=== PATIENT | female | born 1950 | race Caucasian/White ===

== ENCOUNTER → 2019-01-04 | Outpatient (CLI) | payer MEDICARE, BC ==
--- NOTE | 2019-01-04 15:07 | Diagnostic Imaging Report ---
Frontal and lateral views of the chest. HISTORY: GENERAL MEDICAL EXAM, cough, shortness of breath COMPARISON: None available. DISCUSSION: Soft tissue attenuation partially limits sensitivity of the exam. Lungs: Marked elevation of the left hemidiaphragm. Low lung volumes, left greater than right, result in bibasilar vascular crowding, accentuation of the pulmonary interstitial markings, central pulmonary vasculature, and the cardiac silhouette. Allowing for these limitations, the findings are as follows: Patchy right infrahilar and right upper lung zone ill-defined opacities with possible central serpentine lucencies. Pleura: No pleural effusion or pneumothorax. Heart and mediastinum: The mediastinal structures are shifted to the right by the elevated left hemidiaphragm. Bones and soft tissues: Accentuation of the thoracic kyphosis with mild multilevel degenerative disc changes. A 3 mm lumbar retrolisthesis. IMPRESSION: 1. Ill-defined right infrahilar and upper lung opacities with possible central bronchiectasis. Recommend a follow-up CT of the chest without contrast for further evaluation. 2. Elevation of the left hemidiaphragm. After the CT of the chest, a fluoroscopic sniff test may be warranted to evaluate for diaphragmatic paralysis. Signed by: Dr. Amando Lopez D.O., M.M.M. on 01/04/2019 3:04 PM
== END ==
LOC: RAD 13:22
DX: Z00.00 Encounter for general adult medical examination without abnormal findings (principal); R05 Cough
CPT/HCPCS: 71046

== ENCOUNTER → 2019-01-08 | Outpatient (CLI) | payer MEDICARE, BC ==
--- NOTE | 2019-01-08 13:14 | Diagnostic Imaging Report ---
EXAM: CT Chest without contrast INDICATION: Abnormal chest x-ray. COMPARISON: Chest radiograph 01/04/2019. TECHNIQUE: Chest was scanned utilizing a multidetector helical scanner from the lung apex through the level of the adrenal glands without administration of IV contrast. Coronal and sagittal reformations were obtained. Routine protocol was performed. RADIATION DOSE: Total DLP: 428.8 mGy*cm Estimated effective dose: (DLP x 0.014 x size factor) mSv Dose modulation, iterative reconstruction, and/or weight based adjustment of the mA/kV was utilized to reduce the radiation dose to as low as reasonably achievable. COMPLICATIONS: None FINDINGS: LINES/ TUBES: None. LUNGS AND AIRWAYS: The central airways are patent. There is mild volume loss in the right greater than left lung. There is mild rightward mediastinal deviation. There are multifocal, predominantly peripheral reticular opacities, most pronounced in the bilateral upper, right middle, and right lower lobes. There are mild peripheral reticular opacities within the left lower lobe. There are areas of cylindrical bronchiectasis versus honeycombing, for example in the right upper lobe on series 3, image 28 and right lower lobe on image 53. There is associated architectural distortion. Mild patchy groundglass opacities, for example in the right upper lobe on image 25. Scattered nodular opacities, for example in the right upper lobe measuring 5 mm on image 33 and 7 mm in the dependent right upper lobe on image 38. PLEURA: The pleural spaces are clear. HEART AND MEDIASTINUM: The thyroid gland is normal. No mediastinal, hilar or axillary lymphadenopathy. Subcentimeter mediastinal lymph nodes, not meeting size criteria for enlargement. There are calcified right hilar lymph nodes. No cardiomegaly or pericardial effusion. Scattered coronary and aortic atherosclerotic calcifications. There is elevation of the left hemidiaphragm. UPPER ABDOMEN: Limited non-contrast views of the upper abdomen are unremarkable. BONES: No acute osseous abnormality. No suspicious lytic or blastic lesions. SOFT TISSUES: Bilateral breast implants. IMPRESSION: Findings of fibrotic interstitial lung disease, differential includes fibrotic NSIP versus UIP. Indeterminate nodular opacities, measuring up to 7 mm in the right upper lobe. Suggest follow-up interstitial lung disease protocol CT in 3 months. Elevation of left hemidiaphragm. Diaphragmatic sniff test may be considered for further evaluation. Signed by: Dr. Danny Suresh MD on 01/08/2019 1:11 PM
== END ==
LOC: CT 10:02
DX: R93.89 Abnormal findings on diagnostic imaging of other specified body structures (principal)
CPT/HCPCS: 71250

== ENCOUNTER → 2019-02-02 | Outpatient (CLI) | payer MEDICARE, BC ==
--- NOTE | 2019-02-02 12:01 | Diagnostic Imaging Report ---
Exam: Fluoroscopic "Sniff Test". History: Elevated hemidiaphragm on recent imaging. No history of trauma Comparison: CT scan of the chest dated 01/08/2019 Findings: Fluoroscopic evaluation of diaphragmatic excursion shows non movement on the left side. Sniff test reveals paradoxical motion. Fluoroscopy time: 1.0 minutes Total dose: 20.16 mGy Impression: Paradoxical motion of the left diaphragm. Signed by: Dr. Wally Luis DO on 02/02/2019 11:58 AM
== END ==
LOC: DX 08:20
PROVIDERS: ATTEND Internal Medicine Critical Care Medicine
DX: R09.02 Hypoxemia (principal); R06.00 Dyspnea, unspecified; J84.10 Pulmonary fibrosis, unspecified; K21.9 Gastro-esophageal reflux disease without esophagitis; Q79.1 Other congenital malformations of diaphragm; Z88.9 Allergy status to unspecified drugs, medicaments and biological substances
CPT/HCPCS: 36415; 82785; 83615; 85651; 86039; 86431

== ENCOUNTER → 2019-04-18 | Outpatient (CLI) | payer MEDICARE, BC ==
--- NOTE | 2019-04-18 11:49 | Diagnostic Imaging Report ---
ADDENDUM #1 TECHNIQUE: CT scan of the chest WITHOUT intravenous contrast, using standard protocol. Thin collimation scanning during the inspiratory and expiratory phases as well as in the prone position was performed. Sagittal and coronal multiplanar reformations were obtained. Signed by: Dayo Alvarez MD on 04/18/2019 3:04 PM ORIGINAL REPORT EXAM: CT Chest WITHOUT intravenous contrast 04/18/2019 9:16 AM INDICATION: Shortness of breath COMPARISON: Chest CT of 01/08/2019 TECHNIQUE: Chest was scanned utilizing a multidetector helical scanner from the lung apex through the level of the adrenal glands without administration of IV contrast. Coronal and sagittal reformations were obtained. Routine protocol was performed. IV CONTRAST: None RADIATION DOSE: Total DLP: 1438.11 mGy*cm. Dose modulation, iterative reconstruction, and/or weight based adjustment of the mA/kV was utilized to reduce the radiation dose to as low as reasonably achievable. COMPLICATIONS: None FINDINGS: LINES/ TUBES: None. LUNGS AND AIRWAYS: The central airways are patent. Again seen are multifocal predominantly peripheral reticular interstitial opacities with honeycombing, right greater than left. There is associated traction bronchiectasis and architectural distortion of lung parenchyma. On excretory phase imaging, there are geographic areas of lucent lung compatible with air trapping. The previous identified 7 mm right upper lobe nodule (series 3 image 44) is not significantly changed compared to the prior CT of 01/08/2019. No new or enlarging pulmonary nodules. Unchanged elevation of the left hemidiaphragm. PLEURA: No pleural effusion. No pneumothorax. HEART AND MEDIASTINUM: The thyroid gland appears unremarkable. No supraclavicular, mediastinal, hilar, axillary, subpectoral, or internal mammary lymphadenopathy. The heart is not enlarged. There are scattered atherosclerotic calcic dictations of the coronary arteries and thoracic aorta. UPPER ABDOMEN: Limited noncontrast images of the upper abdomen demonstrate no abnormality in the partially visualized liver, gallbladder, kidneys, adrenal glands, spleen, or pancreas. BONES: Mild degenerative changes of the visualized spine. No suspicious lytic or blastic lesions. SOFT TISSUES: Incidental note of bilateral breast implants. IMPRESSION: 1. Fibrotic interstitial lung disease, likely in a UIP pattern, appears similar compared to 01/08/2019. 2. Unchanged 7 mm right upper lobe nodule. Recommend follow-up chest CT in one year. 3. 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 RECOMMENDATIONS: Follow-up chest CT in 1 year. Signed by: Dayo Alvarez MD on 04/18/2019 11:45 AM
== END ==
LOC: CT 09:06
PROVIDERS: ATTEND Internal Medicine Critical Care Medicine
DX: Q79.1 Other congenital malformations of diaphragm (principal); R09.02 Hypoxemia; R06.00 Dyspnea, unspecified; J84.10 Pulmonary fibrosis, unspecified; K21.9 Gastro-esophageal reflux disease without esophagitis; Z88.9 Allergy status to unspecified drugs, medicaments and biological substances
CPT/HCPCS: 71250

== ENCOUNTER → 2021-05-07 | Day surgery (SDC) | payer MEDICARE, BC ==
[2021-05-05 13:45] LABS: BASOPHILS % 0.4 % (0.0-1.0); EOSINOPHILS # (AUTO) 0.3 (0.0-0.4); EOSINOPHILS % 3.8 % (0.0-6.0); LYMPHOCYTES # (AUTO) 1.9 (1.0-3.2); LYMPHOCYTES % 26.4 % (18.0-39.1); MEAN CORPUSCULAR HEMOGLOBIN 29.7 pg (28-32); MEAN CORPUSCULAR HGB CONC 32.4 g/dL (31-35); MEAN CORPUSCULAR VOLUME 91.6 fL (81-99); MONOCYTES # (AUTO) 0.7 (0.2-0.8); MONOCYTES % 9.3 % (4.4-11.3); NEUTROPHILS # (AUTO) 4.3 (2.1-6.9); NEUTROPHILS % 59.7 % (38.7-80.0); PLATELET COUNT 207 x10e3/uL (140-360); RED BLOOD COUNT 4.04 x10e6/uL (3.6-5.1); RED CELL DISTRIBUTION WIDTH 11.9 % (11.7-14.4)
[~2021-05-07] MED LIST: AMLODIPINE BESYL5 MG PO; FAMOTIDINE20 MG PO; GLUCAGON FOR INJ 1 MG VIAL ONE; HYOSCYAMINE SULFATE 0.5 MG/ML INJ ONE; LIDOCAINE HCL 2% LOCAL INJ 5 ML SDV VIAL INJ ONE; LIPITOR10 MG PO; OMEPRAZOLE40 MG PO; PROPOFOL IV EMULSION 10 MG/ML 20 ML VIAL ONE; VIT D3 PO
[2021-05-07 13:00] VITALS: BP 120/76
== END | disposition home or self-care (01) ==
LOC: OR 08:31
PROVIDERS: ATTEND Internal Medicine Gastroenterology
DX: K29.70 Gastritis, unspecified, without bleeding (principal); K44.9 Diaphragmatic hernia without obstruction or gangrene; K63.5 Polyp of colon; K31.7 Polyp of stomach and duodenum; K64.8 Other hemorrhoids; Z91.048 Other nonmedicinal substance allergy status; I10 Essential (primary) hypertension; Z88.0 Allergy status to penicillin; R19.5 Other fecal abnormalities; K21.9 Gastro-esophageal reflux disease without esophagitis; Z83.71 Family history of colonic polyps; Z01.810 Encounter for preprocedural cardiovascular examination; Z01.812 Encounter for preprocedural laboratory examination; J44.9 Chronic obstructive pulmonary disease, unspecified
CPT/HCPCS: 36415; 43239; 45384; 45385; 85025; 88305; 88342; 93005; J1610; J1980; J2001; J2704; 45378; 88312

== ENCOUNTER → 2021-08-03 | Outpatient (CLI) | payer MEDICARE, BC ==
[~2021-08-03] MED LIST changes: -GLUCAGON FOR INJ 1 MG VIAL ONE; -HYOSCYAMINE SULFATE 0.5 MG/ML INJ ONE; -LIDOCAINE HCL 2% LOCAL INJ 5 ML SDV VIAL INJ ONE; -PROPOFOL IV EMULSION 10 MG/ML 20 ML VIAL ONE
== END ==
LOC: MRI 07:22
DX: M54.12 Radiculopathy, cervical region (principal)
CPT/HCPCS: 72141

== ENCOUNTER → 2021-10-23 | Outpatient (CLI) | payer MEDICARE, BC ==
[~2021-10-23] MED LIST changes: +DIATRIZOATE MEGL/DIATRIZOA SOD 120 ML BTL PO ONE
== END ==
LOC: DX 08:05
PROVIDERS: ATTEND Surgery
DX: J84.10 Pulmonary fibrosis, unspecified (principal); J47.9 Bronchiectasis, uncomplicated; Z20.822 Contact with and (suspected) exposure to COVID-19
CPT/HCPCS: 74246; Q9963; U0002

== ENCOUNTER → 2022-12-08 | Outpatient (CLI) | payer MEDICARE, BC ==
[~2022-12-08] MED LIST changes: +BACTRIM DS TAB1 EACH PO; +CELLCEPT500 MG PO; -DIATRIZOATE MEGL/DIATRIZOA SOD 120 ML BTL PO ONE; +LASIX20 MG PO; +MAGNESIUM OXID400 MG PO; +MELATONIN5 M2 PO; +MULTI-VITAMIN1 EACH PO; +PANTOPRAZOLE SO40 MG PO; +TACROLIMUS1 MG PO; +VALCYTE450 MG PO; +ZITHROMAX250 MG PO
== END ==
LOC: MAMMO 09:10
PROVIDERS: ATTEND Internal Medicine
DX: Z12.31 Encounter for screening mammogram for malignant neoplasm of breast (principal)
CPT/HCPCS: 77067

== ENCOUNTER → 2025-02-04 | Outpatient (REF) | payer MEDICARE, BC | LOC: MRI 09:41 | PROVIDERS: ATTEND Internal Medicine | DX: M54.2 Cervicalgia (principal); M79.601 Pain in right arm | CPT/HCPCS: 72141 ==

== ENCOUNTER → 2025-02-25 | Outpatient (REF) | payer MEDICARE, BC | LOC: MAMMO 09:11 | PROVIDERS: ATTEND Internal Medicine | DX: Z12.31 Encounter for screening mammogram for malignant neoplasm of breast (principal); M85.88 Other specified disorders of bone density and structure, other site | CPT/HCPCS: 77067; 77080 ==

== ENCOUNTER → 2025-03-26 | Outpatient (REF) | payer MEDICARE, BC | LOC: RAD 12:19 | PROVIDERS: ATTEND Internal Medicine | DX: Z94.2 Lung transplant status (principal); Z48.298 Encounter for aftercare following other organ transplant; Z51.81 Encounter for therapeutic drug level monitoring; Z79.899 Other long term (current) drug therapy | CPT/HCPCS: 71250; 93306 ==